=== PATIENT | female | born 1990 | race Two or more races ===

== ENCOUNTER 2017-04-17 08:43 | Inpatient (IN) | payer MEDICAID ==
[~2017-04-17] VITALS: Ht 160 cm; Wt 70.9 kg
[2017-04-17] MEDS ORDERED: NEWBORN KIT ONE (10:00)
[2017-04-17] MEDS: LACTATED RINGERS 1,000 ML IVBOLUS PRN ×2 (10:35→11:55)
[2017-04-17] MEDS ORDERED: FENTANYL PF 100 MCG/2ML IV PRN (11:30)
[2017-04-17] MEDS ORDERED: OXYcodone 5 MG/5 ML ORAL.SOL UDC PO PRN (11:30)
[2017-04-17] MEDS ORDERED: HYDROmorphone 1 MG/ML, 1ML IV PRN (11:30)
[2017-04-17] MEDS ORDERED: ONDANSETRON 2MG/ML, 2ML IVPush PRN ×2 (11:30→13:35)
[2017-04-17] MEDS ORDERED: MEASLES,MUMPS&RUBELLA VACC/PF 0.5 ML SQ-VACC ONE (12:00)
[2017-04-17] MEDS ORDERED: morphine SULFATE/PF 0.5 MG/ML, 10ML ONE (12:30)
[2017-04-17] MEDS ORDERED: SODIUM CITRATE/CITRIC ACID 30 ML UDC ONE (12:54)
[2017-04-17] MEDS ORDERED: METOCLOPRAMIDE 5 MG/ML, 2ML ONE (12:54)
[2017-04-17] MEDS ORDERED: CEFAZOLIN 1,000 MG ONE (13:19)
[2017-04-17] MEDS ORDERED: EPHEDRINE 50 MG/ML, 1ML ONE (13:19)
[2017-04-17] MEDS ORDERED: PHENYLEPHRINE 10 MG/ML ONE (13:19)
[2017-04-17] MEDS ORDERED: SIMETHICONE 80 MG CHEW TAB PO PRN (13:20)
[2017-04-17] MEDS ORDERED: ONDANSETRON 2MG/ML, 2ML IV PRN (13:20)
[2017-04-17] MEDS ORDERED: BISACODYL 10 MG SUPP PR PRN (13:20)
[2017-04-17] MEDS: LACTATED RINGERS 1,000 ML IV SCH ×5 (13:20→23:20)
[2017-04-17] MEDS ORDERED: DIPH,PERTUSS(ACELL),TET VAC/PF 0.5 ML IM-VACC ONE (13:20)
[2017-04-17] MEDS ORDERED: METOCLOPRAMIDE 5 MG/ML, 2ML IV PRN (13:20)
[2017-04-17] MEDS ORDERED: GLYCERIN ADULT SUPP PR PRN (13:20)
[2017-04-17] MEDS ORDERED: CALCIUM CARBONATE 500 MG TABLET PO PRN (13:20)
[2017-04-17] MEDS ORDERED: DIPHENHYDRAMINE 50 MG/ML, 1ML IV PRN (13:35)
[2017-04-17] MEDS ORDERED: NALOXONE 0.4 MG/ML, 1ML IV PRN (13:35)
[2017-04-17] MEDS ORDERED: NO SEDATIVES, TRANQUILIZERS OR ANTIEMETICS XX SCH (13:35)
[2017-04-17] MEDS ORDERED: OXYcodone/APAP 5/325MG TABLET PO PRN (13:35)
[2017-04-17] MEDS ORDERED: HYDROmorphone 1 MG/ML, 1ML IVPush PRN (13:35)
[2017-04-17] MEDS ORDERED: OXYTOCIN 30U/ 0.9% NaCL 500ML 500 ML ONE (14:56)
[2017-04-17] MEDS ORDERED: OXYcodone 5 MG/5 ML ORAL.SOL UDC ONE (16:29)
[2017-04-17] MEDS ORDERED: KETOROLAC 30 MG/1 ML ONE ×2 (16:51→23:04)
[2017-04-17] MEDS: KETOROLAC 30 MG/1 ML IVPush SCH ×2 (16:55→23:10)
[2017-04-17] MEDS ORDERED: ONDANSETRON 2MG/ML, 2ML ONE (18:16)
[2017-04-17] MEDS: SODIUM CHLORIDE FLUSH 10ML SYR IVF SCH (21:00)
[2017-04-18] MEDS ORDERED: KETOROLAC 30 MG/1 ML ONE (05:02)
[2017-04-18] MEDS ORDERED: OXYcodone IR 5MG TABLET ONE ×4 (05:04→18:06)
[2017-04-18] MEDS ORDERED: ACETAMINOPHEN 325 MG TABLET ONE (05:05)
[2017-04-18] MEDS: KETOROLAC 30 MG/1 ML IVPush SCH (05:10)
[2017-04-18] MEDS: OXYcodone IR 5MG TABLET PO PRN ×5 (05:10→22:10)
[2017-04-18] MEDS: LACTATED RINGERS 1,000 ML IV SCH ×5 (05:20→21:20)
[2017-04-18] MEDS ORDERED: DOCUSATE 100 MG CAPSULE ONE (08:55)
[2017-04-18] MEDS ORDERED: PRENATAL VIT/IRON/FA 1 EACH TABLET ONE (08:55)
[2017-04-18] MEDS: DOCUSATE 100 MG CAPSULE PO PRN ×2 (09:00→22:10)
[2017-04-18] MEDS: SODIUM CHLORIDE FLUSH 10ML SYR IVF SCH ×2 (09:00→21:00)
[2017-04-18] MEDS: PRENATAL VIT/IRON/FA 1 EACH TABLET PO SCH (09:00)
[2017-04-18] MEDS ORDERED: OXYcodone/APAP 5/325MG TABLET ONE (09:55)
[2017-04-18] MEDS ORDERED: DIPH,PERTUSS(ACELL),TET VAC/PF NC IM-VACC ONE (11:47)
[2017-04-18 12:30] VITALS: BP 106/69
[2017-04-18] MEDS ORDERED: IBUPROFEN 600 MG TABLET ONE (13:03)
[2017-04-18] MEDS: IBUPROFEN 200 MG TABLET PO PRN ×2 (13:20→22:10)
[2017-04-18 20:40] VITALS: BP 96/65
[2017-04-19] MEDS: LACTATED RINGERS 1,000 ML IV SCH (05:20)
[2017-04-19] MEDS ORDERED: OXYTOCIN 30U/ 0.9% NaCL 500ML 500 ML IV PRN (06:30)
[2017-04-19] MEDS ORDERED: SODIUM CITRATE/CITRIC ACID 30 ML UDC PO ONE (06:30)
[2017-04-19 07:23] VITALS: BP 91/63
[2017-04-19] MEDS: OXYcodone IR 5MG TABLET PO PRN (07:56)
[2017-04-19] MEDS: IBUPROFEN 200 MG TABLET PO PRN (07:56)
[2017-04-19] MEDS: DOCUSATE 100 MG CAPSULE PO PRN (07:56)
[2017-04-19] MEDS: PRENATAL VIT/IRON/FA 1 EACH TABLET PO SCH (09:00)
[2017-04-19] MEDS: SODIUM CHLORIDE FLUSH 10ML SYR IVF SCH (09:00)
[2017-04-19] MEDS ORDERED: OXYC5CAP4 PO (10:23)
[2017-04-19] MEDS ORDERED: IBUP-1222 PO (10:23)
[2017-04-19] MEDS ORDERED: DOCU-30 PO (10:23)
== END 2017-04-19 12:02 | disposition home or self-care (01) | DRG 766 ==
LOC: 2NW 13:41
PROVIDERS: ADMIT Student in an Organized Health Care Education/Training Program; ATTEND Student in an Organized Health Care Education/Training Program
PROC: 10D00Z1 Extraction of Products of Conception, Low, Open Approach (ICD-10-PCS; principal; 2017-04-17)
PROC: 0UB70ZZ Excision of Bilateral Fallopian Tubes, Open Approach (ICD-10-PCS; 2017-04-17)
DX: O34.211 Maternal care for low transverse scar from previous cesarean delivery (principal); Z37.0 Single live birth; Z3A.39 39 weeks gestation of pregnancy; Z83.3 Family history of diabetes mellitus; Z82.49 Family history of ischemic heart disease and other diseases of the circulatory system; Z30.2 Encounter for sterilization
CPT/HCPCS: 36415; 85025; 86850; 86900; 88302; 90715; J0690; J1885; J2274; J2405; J2370; J2590; J2765; J7120